=== PATIENT | female | born 1965 | race Caucasian/White ===

== ENCOUNTER → 2019-08-21 | Outpatient (CLI) | payer BC, OTHER ==
[~2019-08-21] VITALS: Ht 152.4 cm; Wt 87.1 kg
[2019-08-21] VITALS (12 sets, daily range): BP systolic 108–130; BP diastolic 47–89
[~2019-08-21] MED LIST: BREO ELLIPTA 21 EACH NASAL; BUPROPION XL300 MG PO; GABAPENTIN800 M1 PO; HYDROXYZINE HCL25 M2 PO; IBUPROFEN 800800 M1 PO; MONTELUKAST SOD10 MG PO; OMEPRAZOLE 20 M20 M1 PO; PROAIR DIGIHAL90 MCG INH; SKELAXIN 800 M800 M1 PO; SLEEP AID25 MG PO; TRAMADOL 50 MG50 MG PO; [UNRECOGNIZED DRUG - REMARK] PO
[2019-08-21 11:10] LABS: HEMATOCRIT 35.9 % (37.0-47.0); MCH 30.2 pg (26.0-34.0); MCHC 33.3 g/dL (28.0-37.0); MCV 90.7 fL (80.0-100.0); RBC 3.95 mil/uL (4.20-5.00); RDW 13.4 % (10.5-14.5); WBC 7.9 thou/uL (4.0-11.0)
[2019-08-21 11:22] LABS: PROTIME 9.9 Seconds (9.3-11.4)
== END | disposition home or self-care (01) ==
LOC: CAT 09:33
PROVIDERS: Radiology Diagnostic Radiology
DX: M71.38 Other bursal cyst, other site (principal); M54.16 Radiculopathy, lumbar region; M51.36 Other intervertebral disc degeneration, lumbar region; J45.909 Unspecified asthma, uncomplicated; K21.9 Gastro-esophageal reflux disease without esophagitis; F32.9 Major depressive disorder, single episode, unspecified; E66.09 Other obesity due to excess calories; Z98.84 Bariatric surgery status; M47.816 Spondylosis without myelopathy or radiculopathy, lumbar region; Z90.49 Acquired absence of other specified parts of digestive tract; Z98.890 Other specified postprocedural states; Z79.899 Other long term (current) drug therapy

== ENCOUNTER → 2020-12-10 | Outpatient (CLI) | payer OTHER ==
[~2020-12-10] VITALS: Ht 149.9 cm; Wt 86.2 kg
[~2020-12-10] MED LIST changes: +DICLOFENAC POTA50 MG PO; +FLEXERIL PO; +METHOCARBAMOL500 M2 PO; +SUDAFED 12 HOU120 MG PO; +VITAMIN B-121000 MC2 IM
[2020-12-10 12:55] VITALS: BP 129/89
--- NOTE | 2020-12-10 13:27 | NUR ---
Pain Clinic Assessment: 1. History of Osteoarthritis: Not Applicable History of Rheumatoid Arthritis: Not Applicable 2. Height: 4 ft. 11 in. 149.9 cm. Weight: lb. oz. kg. Patient's BMI: 3. Vital Signs: BP: 129/89 Pulse: 86 Resp: 20 Temp: 02 Sat: 100 ECG Mon: 4. Pain Intensity: 4 5. Fall Risk: Dizziness: N Needs help standing or walking: N Fallen in the last 3 months: N Fall risk comments: 6. Patient on Blood Thinner: 7. History of Hypertension: N 8. Opioid Therapy greater than 6 weeks: Opiate Contract Signed: 9. Risk Assessment Tool Provided: 10. Functional Assessment Tool: 11. Recreational Drug Use: Never Drug Type: Tobacco Use: Never Smoker Tobacco Type: Amount or Packs/day: How Many Years: Alcohol Use: Past use Frequency: Quant:
--- NOTE | 2020-12-10 13:34 | NUR ---
Pain Clinic Assessment: 1. History of Osteoarthritis: Not Applicable History of Rheumatoid Arthritis: Not Applicable 2. Height: 4 ft. 11 in. 149.9 cm. Weight: 190.0 lb. oz. 86.184 kg. Patient's BMI: 3. Vital Signs: BP: 129/89 Pulse: 86 Resp: 20 Temp: 02 Sat: 100 ECG Mon: 4. Pain Intensity: 4 5. Fall Risk: Dizziness: N Needs help standing or walking: N Fallen in the last 3 months: N Fall risk comments: 6. Patient on Blood Thinner: 7. History of Hypertension: N 8. Opioid Therapy greater than 6 weeks: Opiate Contract Signed: 9. Risk Assessment Tool Provided: 3 LOW RISK 10. Functional Assessment Tool: 11. Recreational Drug Use: Never Drug Type: Tobacco Use: Never Smoker Tobacco Type: Amount or Packs/day: How Many Years: Alcohol Use: Past use Frequency: Quant:
--- NOTE | 2020-12-17 07:46 | HPC ---
[facility] [place] [address] PAIN MANAGEMENT CONSULTATION Name: WILLIAM TESFAYE Room #: REG DELL Yun.#: [id number] Admission: 12/10/20 Attend Phys: Quirino Quiñones DO Discharge: Date of : 61 Report #: [id number] THIS REPORT FOR: cc: Roxanne Chavis MD, Lisa A. MD Johnson, James E. DO ~ DATE OF SERVICE: 12/10/2020 CHIEF COMPLAINT: Bilateral sacroiliac joint pain, left greater than right. HISTORY OF PRESENT ILLNESS: As you know, the patient is a 55-year-old female with reported longstanding history of axial back pain and bilateral upper buttock pain. She states her pain began in 2019. Denies any specific injury or trauma that may have led to symptom development. She has been followed by 2 different pain services prior to referral to our clinic. She was undergoing SI joint injections with Dr. Arriaga with pain improvement lasting for about 30 days with each injection. Due to changes in insurance, the patient was referred off to another pain service, Pain to see Dr. Looney. The patient underwent a set of SI joint injections bilaterally at the first visit, which provided improvement. The second unfortunately led to increased left SI joint pain. The patient has not wish to return to their clinic. She states that pain is exacerbated with sitting for long periods of time, standing and walking exacerbate symptoms as well. She apparently had an MRI of the lumbar spine obtained about 03/2019, which showed facet arthropathy at L4-L5 and L5-S1 and underwent fenestration of synovial cysts. This provided some improvement in some of her pain, but did not consistently provide efficacy. She sought evaluation through her primary care team who then referred the patient on to our clinic to discuss treatment options to address bilateral sacroiliac joint pain and bilateral facet arthropathy pain. The patient reports today her pain is continuous and constant. She describes the pain as burning, shooting, aching, pounding, sharp and stabbing, places current pain score at 3-4/10, daily average at 4-7/10, worst pain has been at 8-9/10. The patient states pain is exacerbated with forward flexion of lumbar spine, standing for long periods of time, climbing stairs or sitting. Pain is improved with heat and cold compresses, medications and repositioning. She has been referred to our service to discuss treatment options for axial back pain and bilateral sacroiliac joint pain. PAST MEDICAL HISTORY: 1. Asthma. 2. Chronic back pain. 3. Gastroesophageal reflux disease. 4. Seasonal allergies. 5. Depression. 6. Obesity. [address] [address] PAIN MANAGEMENT CONSULTATION Name: WILLIAM TESFAYE Room #: REG DELL Méndez#: [id number] Admission: 12/10/20 Attend Phys: Quirino Quiñones DO Discharge: Date of : 61 Report #: [id number] PAST SURGICAL HISTORY: 1. Ankle surgery, 2016. 2. Ankle surgery, 2017. 3. Diaphragmatic hernia repair, 2011. 4. Ankle surgery, 2019. SOCIAL HISTORY: The patient denies tobacco, alcohol, IV or illicit drug use. 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 She is working, not receiving workmen's compensation nor is she trying to obtain discrete benefits. She is unaccompanied at today's visit. REVIEW OF SYSTEMS: Positive for shortness of breath secondary to asthma, nocturia, low back pain, bilateral upper buttock pain. All other review of systems negative per 12-point review of systems other than those listed in history of present illness. Pain impact score 31/70 indicating moderate interference of daily activities secondary to pain. ALLERGIES: No known drug allergies. CURRENT MEDICATIONS: Cyanocobalamin 1000 mcg per day, methocarbamol 500 mg twice a day, cyclobenzaprine 10 mg p.r.n., ibuprofen 800 mg b.i.d., omeprazole 20 mg once a day, montelukast sodium 10 mg once a day, hydroxyzine 25 mg once a day, gabapentin 800 mg once a day, bupropion XL 300 mg once a day, tramadol 50 mg every 6 hours p.r.n. pain loratadine/pseudoephedrine 1 tab per day, albuterol 2 puffs q. 4 hours p.r.n., fluticasone 2 sprays each nostril per day, metaxalone 800 mg b.i.d. IMAGING: MRI of the lumbar spine obtained 04/18/2019 shows T12-L1, L1-L2 unremarkable. L2-L3 shows mild endplate ridging, disk osteophyte complex, no annular tear. No central canal or neural foraminal stenosis. Facet joints are unremarkable. L3-L4 shows subtle area of fluid signal just anterior to the right facet joint, likely a synovial cyst or nerve root sheath cyst. No central canal or neural foraminal stenosis. L4-L5, [id number] bilateral facet arthrosis, left greater than right, ligamentum flavum hypertrophy, no disk bulge or protrusion, no central canal or neural foraminal stenosis. L5-S1, moderate bilateral degenerative facet disease with trace amount of fluid, signal in both facets, right greater than left, facet joint space narrowing and minimal interspace spurring, ligamentum flavum hypertrophy. No disk protrusion, no central canal neural foraminal stenosis. PHYSICAL EXAMINATION: VITAL SIGNS: Blood pressure 129/89, pulse is 86, respiratory rate 20 and unlabored. The patient is 100% on room air. Height 4 feet 11 inches tall, weight 190 pounds and BMI calculated 38.4. GENERAL: Well-developed, well-nourished, well-hydrated, exogenously obese [facility] [address] [place] [address] PAIN MANAGEMENT CONSULTATION Name: WILLIAM TESFAYE Room #: REG [facility]#: [id number] Admission: 12/10/20 Attend Phys: Quirino Quiñones DO Discharge: Date of : 61 Report #: [id number] 55-year-old female appearing stated age, pain is rated today at around 4/10. HEENT: Normocephalic, atraumatic. Pupils equal, round, and responsive. The patient is deemed a good historian. She is wearing a mask in compliance with COVID-19 regulations. LUNGS: Appear clear. No appreciable wheezes, rhonchi or rales. CARDIOVASCULAR: Regular. No appreciable gallop, no rub. ABDOMEN: Soft, obese with active bowel sounds. EXTREMITIES: Show no clubbing, no cyanosis, no edema. MUSCULOSKELETAL: The patient has palpatory tenderness over the paraspinal musculature of lower lumbar spine. No spinous process tenderness. Froylan's test is positive. Provocating testing of the SI joints including thrust test positive. Modified Gaenslen's positive for axial back pain. Seated straight leg raising negative. Supine straight leg raising negative. Jose G's test is negative except for SI joint dysfunction on the left. No intrinsic hip pathology. Ankle clonus negative. Babinski is negative. Muscle bulk and tone equal and symmetrical in lower extremities. She is intact to light touch from L1 through S2 dermatomes. ASSESSMENT: 1. Bilateral sacroiliac joint pain, left greater than right. 2. Facet arthropathy of the lumbar spine. 3. Exogenous obesity. PLAN: 1. Based on today's physical exam and history the patient has provided, the description the patient uses in regards to pain as well as location of symptoms, it would appear the patient is suffering from a combination of facet arthropathy leading to axial back pain and bilateral sacroiliac joint dysfunction. The patient has undergone SI joint injections with good efficacy in the past, but the last set of injections provided by Dr. Looney led to increasing left SI joint pain that has yet to be resolved. She was referred to our clinic to discuss options for treatment. The following was discussed with the patient in treatment options today. We discussed physical therapy, stretching exercises and a concerted effort at weight loss along with pelvic leveling processes done either through chiropractic manipulation or physical therapy programs. We discussed nonsteroidal anti-inflammatories its baseline medication and the use of adjunctive treatments such as acupuncture or chiropractic manipulation as a treatment course. We discussed intraarticular SI joint injections as a treatment option to address not only the facet arthropathy, but the bilateral sacroiliac joint pain, specifically on the left and we also discussed surgical options with the patients such as fusion of the SI joint with either the [employer] [place] or Omnia's SI fusion device. After a long discussion with the patient today, spending over 45 minutes of time discussing the suspected pathology, reviewing her MRI and correlated those findings to her symptoms, we [facility] [address] [place] [address] PAIN MANAGEMENT CONSULTATION Name: WILLIAM TESFAYE Room #: REG DELL Méndez#: [id number] Admission: 12/10/20 Attend Phys: Quirino Quiñones DO Discharge: Date of : 61 Report #: [id number] then chose to begin with conservative treatment, the following was provided today. 2. The patient will be sent for x-ray imaging of the pelvis to evaluate the SI joints more fully and to determine if there is pelvic unleveling. The x-ray was written for today. She will undergo the imaging once she has a chance and we will review those findings. 3. The patient will discontinue all nonsteroidal anti-inflammatories in place, will be using diclofenac potassium 50 mg dose 1 tab p.o. t.i.d. with meals. I have given the patient #90 tablets. She will watch for side effects of dyspepsia, worsening of blood pressure, lower extremity edema with use of this therapy. If she notes any side effects, discontinue immediately, call for further instructions. This will be the baseline medication for her osteoarthritic pain and bilateral SI joint pain. 4. We plan to see the patient back in followup visit in 2 weeks. At that time, we will correlate the SI joint x-ray imaging to the MRI and her current physical exam. We will then determine if interventional treatments would be necessary. I am hopeful the patient will see benefit with the medication management and she can continue to use more conservative approach, though SI joint injections will be considered at our followup visit. 5. We wish to thank the referring physician for the opportunity to see this patient in consultation. We will keep you apprised of her response to treatment as we address facet arthropathy of the lumbar spine and bilateral sacroiliac joint pain secondary to joint dysfunction. Again, we wish to thank you for the opportunity to see the patient in consultation. <ELECTRONICALLY SIGNED> By: Quirino Quiñones DO 12/17/20 [id number] Quirino Quiñones DO /nt
== END ==
LOC: PAIN 06:59 → RAD 06:59 → PAIN 13:35
PROVIDERS: ATTEND Anesthesiology Pain Medicine
DX: M47.816 Spondylosis without myelopathy or radiculopathy, lumbar region (principal); M46.1 Sacroiliitis, not elsewhere classified; J45.909 Unspecified asthma, uncomplicated; M54.9 Dorsalgia, unspecified; G89.29 Other chronic pain; K21.9 Gastro-esophageal reflux disease without esophagitis; E66.9 Obesity, unspecified; E66.09 Other obesity due to excess calories; F32.9 Major depressive disorder, single episode, unspecified; Z79.899 Other long term (current) drug therapy; Z79.891 Long term (current) use of opiate analgesic